=== PATIENT | male | born 1985 | race Caucasian/White ===

== ENCOUNTER 2023-04-02 21:03 | Emergency (ER) | payer BC, SELFPAY ==
[2023-04-02 21:05] VITALS: BP 133/88; PULSE 84; RESP 18; TEMP 36.4; O2SAT 98
[2023-04-02] MEDS: LIDOCAINE HCL 2% VISC SOLN 15 ML UDC PO (22:38)
[2023-04-02 22:52] VITALS: BP 125/74; PULSE 74; RESP 20; O2SAT 97
[2023-04-02 22:52] LABS: Basophils Absolute Auto 0.1 K/mm3 (0.0-0.1); Basophils Percent Auto 1.3 % (0.2-1.2); Eosinophils Absolute Auto 0.2 K/mm3 (0-0.3); Eosinophils Percent Auto 3.6 % (0-4.4); Hematocrit 39.7 % (42.0-52.0); Hemoglobin 13.9 g/dL (14.0-18.0); Immature Granulocyte Absolute 0.02 K/mm3 (0.00-0.031); Immature Granulocyte Percent A 0.3 % (0-0.5); Lymphocytes Absolute Auto 2.44 K/mm3 (0.9-3.2); Lymphocytes Percent Auto 40.4 % (18.3-44.2); Mean Corpuscular Hemoglobin 30.1 pg (26-34); Mean Corpuscular Volume 85.9 fl (80-100); Mean Platelet Volume 8.9 fl (7.4-10.4); Monocytes Absolute Auto 0.8 K/mm3 (0.1-0.6); Monocytes Percent Auto 13.9 % (2.6-8.5); Neutrophils Absolute Auto 2.4 K/mm3 (1.3-6.7); Neutrophils Percent Auto 40.5 % (45.5-73.1); Platelet Count Result 358 k/mm3 (150-375); Red Blood Count 4.62 M/mm3 (4.6-6.20); Red Cell Distribution Width 12.4 % (11.5-14.5)
[2023-04-02 23:05] LABS: Alanine Aminotransferase 23 U/L (6-50); Albumin Level 4.7 g/dL (3.5-5.1); Alkaline Phosphatase 68 U/L (38-126); Anion Gap 7 mmol/L (8-16); Aspartate Amino Transferase 32 U/L (17-59); Bilirubin,Total 0.4 mg/dL (0.2-1.3); Blood Urea Nitrogen 23 mg/dL (9-20); Calcium 9.4 mg/dL (8.4-10.2); Carbon Dioxide 27 mmol/L (22-30); Chloride 103 mmol/L (98-107); Estimated CRCL calculation 101 ml/min; Estimated Glomerular Filt Rate > 60; Glucose 114 mg/dL (65-110); Potassium 4.1 mmol/L (3.4-5.0); Sodium 137 mmol/L (137-145)
--- NOTE | 2023-04-02 23:36 | ED.GENADULT ---
HPI - General Adult General Chief complaint: GI Bleed Stated complaint: blood in stool, abd pain Time Seen by Provider: 04/02/23 21:44 History of Present Illness HPI narrative: Patient patient presents to the emergency department with concern for seeing blood in his stool. States that it is intermittent and very minimal. Denies history of hemorrhoids and denies having hemorrhoids currently. Patient denies generalized abdominal discomfort nausea vomiting or diarrhea. Denies history of constipation. He has a history of anxiety and is on multiple medications for it. Patient also states he has had this lower neck discomfort when he eats or drinks anything intermittent over the past couple weeks. Denies difficulty swallowing difficulty breathing. Overall patient is very pleasant and in no distress. He is concerned about his health Related Data Allergies Allergy/AdvReac Type Severity Reaction Status Date / Time Penicillins Allergy Unknown Other Verified 04/02/23 21:12 Review of Systems Review of Systems: Review of systems negative except what is documented in the HPI Exam Narrative: GENERAL: Well-appearing, well-nourished, and in no acute distress. HEAD: Normocephalic, atraumatic. EYES: PERRLA and EOMI. ENT: Nares clear, no rhinorrhea or epistaxis. Mucous membranes moist. NECK: Supple. CHEST: Clear to auscultation. No respiratory distress. HEART: Regular rate and rhythm. ABDOMEN: Soft, nontender, nondistended. EXTREMITIES: Normal range of motion. No edema. SKIN: Warm, dry, no rash. NEURO: No focal deficits. Alert and oriented x3. PSYCH: Normal mood and affect. Course Course Emergency Course: Differential diagnosis includes but not limited to gastritis, hemorrhoids, anxiety. Patient given viscous lidocaine and improved his throat sensation however patient stated that it is intermittent regardless Vital Signs Vital signs: Vital Signs Temperature 36.4 C L 04/02/23 21:05 Pulse Rate 84 04/02/23 21:05 Respiratory Rate 18 04/02/23 21:05 Blood Pressure 133/88 04/02/23 21:05 Pulse Oximetry 98 04/02/23 21:05 Oxygen Delivery Room Air 04/02/23 21:05 Temperature 36.4 C L 04/02/23 21:05 Pulse Rate 74 04/02/23 22:52 Respiratory Rate 20 04/02/23 22:52 Blood Pressure 125/74 04/02/23 22:52 Pulse Oximetry 97 04/02/23 22:52 Oxygen Delivery Room Air 04/02/23 21:05 Medical Decision Making MDM Narrative Medical decision making narrative: Labs including CBC and CMP ordered. Both grossly unremarkable. Hemoglobin 13.9. Mild hematochezia per patient at home. No active bleeding noted. Patient advised to follow-up with GI. We will also start him on Pepcid. Patient states he vapes and he was advised that it is dangerous for him and he should stop. He has no intention of decreasing in the future Vital Signs Vital Signs: Vital Signs Temperature 36.4 C L 04/02/23 21:05 Pulse Rate 84 04/02/23 21:05 Respiratory Rate 18 04/02/23 21:05 Blood Pressure 133/88 04/02/23 21:05 Pulse Oximetry 98 04/02/23 21:05 Oxygen Delivery Room Air 04/02/23 21:05 Temperature 36.4 C L 04/02/23 21:05 Pulse Rate 74 04/02/23 22:52 Respiratory Rate 20 04/02/23 22:52 Blood Pressure 125/74 04/02/23 22:52 Pulse Oximetry 97 04/02/23 22:52 Oxygen Delivery Room Air 04/02/23 21:05 Lab Data 04/02/23 22:39 04/02/23 22:39 Labs: Lab Results 04/02/23 Range/Units 22:39 WBC 6.0 (4.5-10.0) K/mm3 RBC 4.62 (4.6-6.20) M/mm3 Hgb 13.9 L (14.0-18.0) g/dL Hct 39.7 L (42.0-52.0) % MCV 85.9 (80-100) fl MCH 30.1 (26-34) pg MCHC 35.0 (32-36) g/dl RDW 12.4 (11.5-14.5) % Plt Count 358 (150-375) k/mm3 MPV 8.9 (7.4-10.4) fl Immature Gran % (Auto) 0.3 (0-0.5) % Neut % (Auto) 40.5 L (45.5-73.1) % Lymph % (Auto) 40.4 (18.3-44.2) % [place] % (Auto) 13.9 H (2.6-8.5) % Eos % (Auto) 3.6 (0-4.4) % Baso % (Au
== END 2023-04-02 23:49 | disposition home or self-care (01) ==
PROVIDERS: Emergency Provider Emergency Medicine
DX: K92.1 Melena (principal); R07.0 Pain in throat
CPT/HCPCS: 36415; 80053; 85025; 99283

== ENCOUNTER 2024-08-18 10:33 | Emergency (ER) | payer BC, SELFPAY ==
--- OUTSIDE RECORDS SUMMARY | 2024-08-18 10:35 | XMS_ITS | Referral Summary ---
Author Organization [facility] Address [address] [place] [address] Care Team Providers Care Residential Sales Name Role Phone Jean Goss MD Primary Care Provider [phone] Allergies Active Allergy Reactions Criticality Noted Date Comments Penicillin V Potassium Unknown 05/18/2019 Medications PARoxetine (PAXIL) 20 mg tablet 02/04/2022 Active mirtazapine (REMERON) 15 mg tablet Take 15 mg by mouth nightly 02/04/2022 Active QUEtiapine (SEROquel) 300 mg tabletIndicatio ns:Severe episode of recurrent major depressive disorder, without psychotic features (HCC) Take 1 tablet (300 mg total) by mouth nightly 30 tablet 03/09/2022 Active ALPRAZolam (XANAX) 1 mg tabletIndicatio ns:Generalized anxiety disorder with panic attacks Take 1 tablet (1 mg total) by mouth daily as needed for anxiety for up to 7 days 7 tablet 03/09/2022 Active Active Problems Problem Noted Date Diagnosed Date Positive urine drug screen 12/16/2023 Generalized anxiety disorder with panic attacks 01/19/2022 Assessment & Plan (03/09/2022 4:19 PM CDT): Likely exacerbated by Suboxon disontinuation. Recommend to follow up with Psych. Assessment & Plan (01/19/2022 8:41 AM CDT): Overall Condition Chronic Condition: Uncontrolled. Treatment: New Medication: Lexapro and Xanax as prescribedc. and Referral: clincal psychologist Follow up in 1 month Breast lump on right side at 9 o'clock position 07/28/2021 Assessment & Plan (07/28/2021 4:21 PM CENTRAL SUPPLY TECH): Overall Condition Chronic Condition: Uncontrolled and New Diagnosis. Treatment: Imaging: Diagnositic Mammogram Follow up in 1 month Ecchymosis 06/26/2021 Assessment & Plan (06/26/2021 1:28 AM CENTRAL SUPPLY TECH): Acute-encouraged to observe for the next 2-1/2 days, calling office with any concerns. Advised no treatment necessary at this time, however if purplish discoloration returns, come in for follow-up. Informed can also follow-up with Dr. Goss next week with any further concerns. Attention deficit hyperactiv ity disorder (ADHD), predominantly inattentive type 03/10/2021 Assessment & Plan (07/28/2021 4:21 PM CENTRAL SUPPLY TECH): Overall Condition Stable and Well-controlled. Treatment: Continue Present Management Follow up in 3 months Assessment & Plan (03/10/2021 1:17 PM CDT): Overall Condition Chronic Condition: Uncontrolled. Treatment: New Medication: Increase Adderall 20mg. Follow up in 3 months Erectile dysfunction 06/30/2020 Elevated blood pressure read ing without diagnosis of hypertension 06/12/2019 Assessment & Plan (06/12/2019 12:57 PM CENTRAL SUPPLY TECH): Overall Condition New Diagnosis and never been on medication. Treatment: New Medication: Consider Daily AM BP readings for next two weeks. Consider tobacco cessation. Consider to be started on medication. Follow up in 3 months Tobacco use disorder 06/12/2019 Assessment & Plan (05/14/2020 4:35 PM CDT): Tobacco Cessation counselling for more than 10minutes being provided. Assessment & Plan (06/12/2019 12:56 PM CENTRAL SUPPLY TECH): Tobacco Cessation counselling for more than 10minutes being provided. Lumbar pain 06/12/2019 Assessment & Plan (06/12/2019 1:14 PM CENTRAL SUPPLY TECH): Overall Condition: New Acute Problem Treatment: New Medication: Naproxen. Tramadol, Imaging: XRAY and Referral: PT Follow up PRN Severe episode of recurrent major depressive disorder, without psychotic features 08/09/2017 Assessment & Plan (03/09/2022 4:19 PM CDT): Overall Condition Chronic Condition: Uncontrolled. Treatment: Referral: Patient must see psychiatrist to be able to continue multiple psych medications. Follow up in 3 months Assessment & Plan (07/28/2021 4:22 PM CENTRAL SUPPLY TECH): Overall Condition Chronic Condition: Uncontrolled. Treatment: Referral: Patient must see psychiatrist to be able to continue multiple psych medications. Follow up in 3 months Assessment & Plan (12/04/2020 11:09 AM CDT): Overall Condition Stable and Well-controlled. Treatment: Continue Present Management Follow up in 3 months Assessment & Plan (06/12/2019 12:56 PM CENTRAL SUPPLY TECH): Overall Condition Stable and Well-controlled. Treatment: Continue Present Management Follow up in 6 months Social History Tobacco Use Types Packs/Day Years Used Date Smoking Tobacco: Every Day Alcohol Use Standard Drinks/Week Comments Never 0 (1 standard drink = 0.6 oz pur e alcohol) AUDIT-C Answer Date Recorded Frequency of Alcohol Consumption Never 06/12/2019 Average Number of Drinks Not on file 019 Frequency of Binge Drinking Not on file 05/25 PHQ-2 Answer Date Recorded PHQ-2 Total Score (If total score is 3 or more points, staff should administer the PHQ-9) 0 01/19/2022 Personal Safety Answer Date Recorded Have you ever been in or are you currently in a harmful physical or emotional relationship or is someone making you feel afraid or unsafe? Denies 12/16/2023 Sex and Gender Information Value Date Recorded Sex Assigned at Not on file Legal Sex Male 8:56 PM CENTRAL SUPPLY TECH Gender Identity Not on file Sexual Orientation Not on file Last Filed Vital Signs Vital Sign Reading Time Taken Comments Blood Pressure 119/68 12/16/2023 11:08 PM CDT Pulse 67 12/16/2023 11:08 PM CDT Temperature 36.9 ??C (98.4 ??F) 12/16/2023 4:24 PM CD T Respiratory Rate 18 12/16/2023 11:08 PM CDT Oxygen Saturation 97% 12/16/2023 11:08 PM CDT Inhaled Oxygen Concentration - - Weight 95.3 kg (210 lb) 12/16/2023 4:24 PM CDT Height 177.8 cm (5' 10 ) 12/16/2023 4:24 PM CDT Body Mass Index 30.13 12/16/2023 4:24 PM CDT Plan of Treatment Not on file Insurance [facility] [place] [facility] PLAN [facility] HMO Care Teams Residential Sales Relationship Specialty Start Date End Date Jean Goss MD PCP - General Family Medicine 06/11/19
--- OUTSIDE RECORDS SUMMARY | 2024-08-18 10:35 | XMS_ITS | Clinical Summary ---
Author Organization [facility] Address [address] [place] [address]. [place], [place] [id number] [place] [id number] Care Team Providers Care Manufacturing Engineer Name Role Phone Jean Goss MD Primary Care Provider [phone] Allergies Active Allergy Reactions Criticality Noted Date Comments Penicillins Other (see comment) 04/09/2022 paralysis Medications DULoxetine (CYMBALTA) 30 MG capsule Take 30 mg by mouth daily. 04/02/2022 Active QUEtiapine (SEROQUEL) 300 MG tablet Take 300 mg by mouth nightly at bedtime. at bedtime 04/02/2022 Active tiZANidine (ZANAFLEX) 4 MG tablet Take 1 tablet (4 mg total) by mouth every 6 (six) hours as needed. 12 tablet 04/09/2022 Active traMADol (ULTRAM) 50 MG tabletIndicatio ns:Acute Pain < 7 Day Supply Take 1 tablet (50 mg total) by mouth nightly as needed for Pain. Indications: Acute Pain < 7 Day Supply 7 tablet 04/09/2022 Active Family History Medical History Relation Comments Diabetes Father Diabetes Paternal Grandmother Relation Status Comments Father Paternal Grandmother Social History Tobacco Use Types Packs/Day Years Used Date Smoking Tobacco: Former Smokeless Tobacco: Never Alcohol Use Standard Drinks/Week Comments Never 0 (1 standard drink = 0.6 oz pur e alcohol) Sex and Gender Information Value Date Recorded Sex Assigned at Not on file Legal Sex Male 6:13 PM CDT Gender Identity Not on file Sexual Orientation Not on file Last Filed Vital Signs Vital Sign Reading Time Taken Comments Blood Pressure 170/100 04/09/2022 4:41 PM CDT Pulse 110 04/09/2022 4:41 PM CDT Temperature 37.1 ??C (98.7 ??F) 04/09/2022 4:41 PM CD T Respiratory Rate 18 04/09/2022 4:41 PM CDT Oxygen Saturation 98% 04/09/2022 4:41 PM CDT Inhaled Oxygen Concentration - - Weight 86.2 kg (190 lb) 04/09/2022 4:41 PM CDT Height 177.8 cm (5' 10 ) 04/09/2022 4:41 PM CDT Body Mass Index 27.26 04/09/2022 4:41 PM CDT Plan of Treatment Health Maintenance Due Date Last Done Comments Annual Physical 1990 Hepatitis C 2005 DTaP, Tdap and Td Vaccines ( 1 - Tdap) 2006 Hepatitis B Vaccines (1 of 3 - 19+ 3-dose series) 2006 COVID-19 Vaccine (2023-2 5 season) 2024 12/10/2020, 11/12/2020 Influenza Adult (#1) 2024 HPV Vaccines Aged Out No longer eligi ble based on patient's age to complete this topic Meningococcal B Vaccine Aged Out No l onger eligible based on patient's age to complete this topic Meningococcal Vaccine Aged Out No margaret luis eligible based on patient's age to complete this topic Pneumococcal Vaccine: Pediatrics (0 to 5 Years) and At-Risk Patients (6 to 64 Years) Aged Out No longer eligible b ased on patient's age to complete this topic RSV Immunizations Under 20 Months Aged Out No longer eligible b ased on patient's age to complete this topic Insurance [facility] Care Teams Manufacturing Engineer Relationship Specialty Start Date End Date Jean Goss MD PCP - General FAMILY PRACTICE 04/09/22
--- OUTSIDE RECORDS SUMMARY | 2024-08-18 10:35 | XMS_ITS ---
Author Organization [facility] Address [address] [place] [address] Care Team Providers Care Hack Saw Operator Name Role Phone Mathieu Little Primary Care Provider Trish Ayers Unavailable [phone] Allergies Allergen (clinical drug ingredient) Drug/Non Drug Allergy documented on EMR Reaction Allergy Type Onset Date Status Penicillin G Benzathine Unknown Drug Allergy Active REASON FOR VISIT 1 month f/u Medications Medication SIG (Take, Route, Frequency, Duration) Notes Start Date End Date Status Buprenorphine HCl-Naloxone HCl 8-2 MG 1 film under the tongue and allow to dissolve Sublingual three times a day for 15 days 08/03/2024 Active buPROPion HCl ER (XL) 300 MG 1 tablet in the morning Orally Once a day for 30 days Active Docusate Sodium 100 MG 1 capsule as need ed Orally Once a day for 30 days 04/30/2024 Active Albuterol Sulfate HFA 108 (90 Base) MCG/ACT INHALE 1 PUFF BY MOUTH EVERY 4 HOURS NEEDED FOR WHEEZING for 33 Not-Taking Propranolol HCl ER 60 MG 1 capsule Orall y twice per day for 30 days Active QUEtiapine Fumarate 400 MG TAKE 1 TABLET BY MOUTH EVERY DAY AT BEDTIME FOR 30 DAYS for 30 days Active Fluticasone Propionate 50 MCG/ACT 1-2 sprays in each nostril Nasally once daily for 30 days 07/23/2024 Active QUEtiapine Fumarate 200 MG 1 tablet Oral ly twice a day for 30 days Active Zolpidem Tartrate 10 MG 1 tablet at bedt valentín as needed Orally Once a day for 30 days 08/01/2024 Active Pantoprazole Sodium 20 MG 1 tablet 1/2 t o 1 hour before morning meal Orally Once a day for 30 days Active Cetirizine HCl 10 MG 1 tablet as needed Orally Once a day for 30 days 07/23/2024 Active Social History Sex Assigned At : Social History Observation Description Sex Assigned At Male Encounters Encounter Location Date Provider Diagnosis [address] [place] [address] 08/01/2024 Trihs Ayers MDD (major depressiv e disorder) F32.9 ; Generalized anxiety disorder F41.1 and Sleep disturbance, unspecified G47.9 Assessments Encounter Date Diagnosis (ICD Code) Assessment Notes Treatment Notes Treatment Clinical Notes Section Notes 08/01/2024 MDD (major depressive disorder) (ICD-10 - F32.9) 08/01/2024 Generalized anxiety disorder (ICD-10 - F41.1) 08/01/2024 Sleep disturbance, unspecified (ICD-10 - G47.9) Has tried Seroquel, trazodone. Hx of doing well with Ambien, tried 6.25 mg CR with minimal response, changing to 10mg IR. Discussed not taking at same time as Suboxone. Discussed resp depression. Discussed r/b/se and controlled susbtance. Recent UDS with MAR reviewed, no conserns at this time. PDMP checked without concerns. 08/01/2024 Other Reasons, potential benefits, potential risks, interactions and side effects of all medications were discussed. The Patient/Guardian asked appropriate questions, appeared to understand the answers, and decided to accept the treatment and continue being followed. Alternatives and expected course without treatment were reviewed. The Patient/Guardian is aware of the need to contact the office or return for an earlier appointment if any problems or concerns arise. May also contact the 24-hour crisis hotline ([facility]), refer to the closest emergency room or call 911 if new symptoms arise of existing symptoms worsen. The Patient/Guardian is aware that this would apply to symptoms like: suicidal ideation, homicidal ideation, high risk behaviors, manic symptoms, psychotic symptoms, physical symptoms, or any other symptoms that may be dangerous to self or others. Greater than 50% of time spent on coordination and counseling where psychopharmacology as well as psychotherapeutic interventions were discussed along with review of treatments in the past. Education provided concerning need for adequate hydration. Patient/Guardian verbalized understanding of education, treatment plan and follow up. This session was completed telephonically with client/parental/guard graham consent: Unable to determine movement status, assess appearance, affect, AIMS, or vital signs. Plan Of Treatment Medication Medication Name Sig Start Date Stop Date Notes buPROPion HCl ER (XL) 300 MG 1 tablet in the morning Orally Once a day for 30 days Zolpidem Tartrate ER 6.25 MG 1 tablet at bedtime as needed Orally Once a day for 30 days Propranolol HCl ER 60 MG 1 capsule Orall y twice per day for 30 days QUEtiapine Fumarate 400 MG TAKE 1 TABLET BY MOUTH EVERY DAY AT BEDTIME FOR 30 DAYS for 30 days QUEtiapine Fumarate 200 MG 1 tablet Oral ly twice a day for 30 days Zolpidem Tartrate 10 MG 1 tablet at bedt valentín as needed Orally Once a day for 30 days 08/01/2024 Treatment Notes Assessment Notes Sleep disturbance, unspecified Has tried Seroquel, trazodone. Hx of doing well with Ambien, tried 6.25 mg CR with minimal response, changing to 10mg IR. Discussed not taking at same time as Suboxone. Discussed resp depression. Discussed r/b/se and controlled susbtance. Recent UDS with MAR reviewed, no conserns at this time. PDMP checked without concerns. Other Reasons, potential benefits, potential risks, interactions and side effects of all medications were discussed. The Patient/Guardian asked appropriate questions, appeared to understand the answers, and decided to accept the treatment and continue being followed. Alternatives and expected course without treatment were reviewed. The Patient/Guardian is aware of the need to contact the office or return for an earlier appointment if any problems or concerns arise. May also contact the 24-hour crisis hotline ([facility]), refer to the closest emergency room or call 911 if new symptoms arise of existing symptoms worsen. The Patient/Guardian is aware that this would apply to symptoms like: suicidal ideation, homicidal ideation, high risk behaviors, manic symptoms, psychotic symptoms, physical symptoms, or any other symptoms that may be dangerous to self or others. Greater than 50% of time spent on coordination and counseling where psychopharmacology as well as psychotherapeutic interventions were discussed along with review of treatments in the past. Education provided concerning need for adequate hydration. Patient/Guardian verbalized understanding of education, treatment plan and follow up. This session was completed telephonically with client/parental/guardian consent: Unable to determine movement status, assess appearance, affect, AIMS, or vital signs. Next Appt Details Follow Up: 4 Weeks, Reason: Psych F/U, may be telehealth Progress Notes * Héctor MERAZwDOB:[birth year] (38 yo M)Acc No.[id number]:08/01/2024 Patient:?Ab MERAZ Provider:?Trish Ayers, MSN, SCREW DRIVER OPERATOR, EAP SPECIALIST- C :1985???Age:38 Y???Sex:Male Siddhartha e:08/01/2024 Address:[address] [place], [place] [id number] Pcp:Mathieu Little Subjective: * Chief Complaints: * ???1 month f/u * HPI: ???Depression Screening:?PHQ-9?Little interest or pleasure in doing things?Several days,?Feeling down, depressed, or hopeless?Several days,?Trouble falling or staying asleep, or sleeping too much?More than half the days,?Feeling tired or having little energy?More than half the days,?Poor appetite or overeating?Several days,?Feeling bad about yourself or that you are a failure, or have let yourself or your family down?Not at all,?Trouble concentrating on things, such as reading the newspaper or watching television?Several days,?Moving or speaking so slowly that other people could have noticed; or the opposite, being so fidgety or restless that you have been moving around a lot more than usual?Not at all,?Thoughts that you would be better off or of hurting yourself in some way?Not at all,?Total Score?8,?Interpretation?Mild Depression.?Screening:?Zavala Suicide Severity Rating Scale (LF)?Do you want to initiate with?Screener form,?1. Wish to be : Have you wished you were or wished you could go to sleep and not wake up??No,?2. Suicidal Thoughts: Have you actually had any thoughts of killing yourself??No,?6. Suicide Behaviour: Have you ever done anything,started to do anything, or prepared to end your life??No,?Interpretation:?Low Risk.?CSSRS Interpretation and Follow Up Plan:?CSSRS Interpretation and Follow Up Plan?CSSRS Screen documented using SF?Yes,?Risk Disposition from SF?Low - No Follow Up Plan Required,?Follow Up Plan?No Follow Up Plan required at this time..?Summary:? How ct. doing today? Client is a 38 yo M on the phone today reporting things have been going well overall besides not sleeping great.? States taking medications well. Denies SE.? States Ambien CR helps minimal, trouble with falling and staying asleep.? Depression: 11/01 Anxiety: 11/01? Anger/irritability: Denies? Social: Talks with family, working?? Sleep: A little better but not a huge improvement by any means. ? Appetite: Fair, mainly eat when I get home from work. Eats 1-2 times per day. States he does well with drinking water.? Work: Going well? Drugs/ETOH: Denies? Hallucinations/paranoia: Denies? Denies SI/HI.? Denies medical changes/concerns at this time. * ROS:?Psych ROS:?Constitutional?Denies.?Eyes?Denies.?Ears/Nose/Mouth/Throat?Denies.?Respirat ory?Denies.?Allergic /Immunologic?Denies.?Cardiovascular?Denies.?GI?Reports,?ulcer.?Musculoskeletal?D enies. Neuro l ogical?Denies.?Integumentary?Denies.?Endocrine?Denies.?Hematological/Lymphatic?D enies.?Psychiatric: Denies SI/HI/AVH. * Medical History:? * Surgical History:? * Hospitalization/Major Diagno stic Procedure:?[facility] 20[facility]Multiple psychiatric holds bleeding ulcer, Fall, broken ankle 11/2023 * Family History:?Father: dece ased.?Mother: alive.?1 brother(s) , 1 sister(s) - healthy. .? Diabetes Brother . 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 * Medications:?TakingPantopraz ole Sodium 20 MG Tablet Delayed Release 1 tablet 1/2 to 1 hour before morning meal Orally Once a day Cetirizine HCl 10 MG Tablet 1 tablet as needed Orally Once a day Fluticasone Propionate 50 MCG/ACT Suspension 1-2 sprays in each nostril Nasally once daily Propranolol HCl ER 60 MG Capsule Extended Release 24 Hour 1 capsule Orally twice per day QUEtiapine Fumarate 400 MG Tablet TAKE 1 TABLET BY MOUTH EVERY DAY AT BEDTIME FOR 30 DAYS QUEtiapine Fumarate 200 MG Tablet 1 tablet Orally twice a day buPROPion HCl ER (XL) 300 MG Tablet Extended Release 24 Hour 1 tablet in the morning Orally Once a day Zolpidem Tartrate ER 6.25 MG Tablet Extended Release 1 tablet at bedtime as needed Orally Once a day Docusate Sodium 100 MG Capsule 1 capsule as needed Orally Once a day Buprenorphine HCl-Naloxone HCl 8-2 MG Film 1 film under the tongue and allow to dissolve Sublingual three times a day Taking Pantoprazole Sodium 20 MG Tablet Delayed Release 1 tablet 1/2 to 1 hour before morning meal Orally Once a day Taking Cetirizine HCl 10 MG Tablet 1 tablet as needed Orally Once a day Taking Fluticasone Propionate 50 MCG/ACT Suspension 1-2 sprays in each nostril Nasally once daily Taking Propranolol HCl ER 60 MG Capsule Extended Release 24 Hour 1 capsule Orally twice per day Taking QUEtiapine Fumarate 400 MG Tablet TAKE 1 TABLET BY MOUTH EVERY DAY AT BEDTIME FOR 30 DAYS Taking QUEtiapine Fumarate 200 MG Tablet 1 tablet Orally twice a day Taking buPROPion HCl ER (XL) 300 MG Tablet Extended Release 24 Hour 1 tablet in the morning Orally Once a day Taking Zolpidem Tartrate ER 6.25 MG Tablet Extended Release 1 tablet at bedtime as needed Orally Once a day Taking Docusate Sodium 100 MG Capsule 1 capsule as needed Orally Once a day Taking Buprenorphine HCl-Naloxone HCl 8-2 MG Film 1 film under the tongue and allow to dissolve Sublingual three times a day Not-TakingAlbuterol Sulfate HFA 108 (90 Base) MCG/ACT Aerosol Solution INHALE 1 PUFF BY MOUTH EVERY 4 HOURS NEEDED FOR WHEEZING Not-Taking Albuterol Sulfate HFA 108 (90 Base) MCG/ACT Aerosol Solution INHALE 1 PUFF BY MOUTH EVERY 4 HOURS NEEDED FOR WHEEZING * Allergies:?Penicillin G Olvin athineno[Allergies Verified] Objective: * Vitals:? * Examination: ???Mental Status Exam: ?SENSORIUM AND COGNITION? Alert, Oriented to Person, Oriented to Place, Oriented to Time, Oriented to Situation.?ATTENTION AND CONCENTRATION? No deficits.?ATTITUDE AND BEHAVIOR? Cooperative, Receptive.?MEMORY? Immediate, Recent, Remote.?MOOD?Euthymic.?SPEECH QUANTITY? Appropriate.?SPEECH QUALITY? Appropriate volume.?THOUGHT PROCESS? Coherent and goal directed.?THOUGHT CONTENT? Appropriate - WNL.?SUICIDAL IDEATION? Denies suicidal ideation.?HOMICIDAL IDEATION? Denies homicidal ideation.?HALLUCINATIONS? Denies hallucinations.?INSIGHT?Fair.?JUDGMENT?Fair.?FUND OF KNOWLEDGE?Good.?ABILITY TO PARTICIPATE IN TREATMENT?Moderate.?WILLINGNESS TO PARTICIPATE IN TREATMENT?Moderate.?Exam limited due to telephone encounter. Assessment: * Assessment: 1.?MDD (major depressive dis order) - F32.9 (Primary)???2.?Generalized anxiety disorder - F41.1???3.?Sleep disturbance, unspecified - G47.9??? Plan: * Treatment: 2.?Generalized anxiety disor faustino? Continue Propranolol HCl ER Capsule Extended Release 24 Hour, 60 MG, 1 capsule, Orally, twice per day, 30 days, 60, Refills 0.?? 3.?Sleep disturbance, unspec ified? Stop Zolpidem Tartrate ER Tablet Extended Release, 6.25 MG, 1 tablet at bedtime as needed, Orally, Once a day, 30 days, 30 Tablet;?Start Zolpidem Tartrate Tablet, 10 MG, 1 tablet at bedtime as needed, Orally, Once a day, 30 days, 30 Tablet, Refills 0.?? Notes: Has tried Seroquel, trazodone. Hx of doing well with Ambien, tried 6.25 mg CR with minimal response, changing to 10mg IR. Discussed not taking at same time as Suboxone. Discussed resp depression. Discussed r/b/se and controlled susbtance. Recent UDS with MAR reviewed, no conserns at this time. PDMP checked without concerns. ?? 4.?Others? Notes: Reasons, potential benefits, potential risks, interactions and side effects of all medications were discussed. The Patient/Guardian asked appropriate questions, appeared to understand the answers, and decided to accept the treatment and continue being followed. Alternatives and expected course without treatment were reviewed. The Patient/Guardian is aware of the need to contact the office or return for an earlier appointment if any problems or concerns arise. May also contact the 24-hour crisis hotline ([facility]), refer to the closest emergency room or call 911 if new symptoms arise of existing symptoms worsen. The Patient/Guardian is aware that this would apply to symptoms like: suicidal ideation, homicidal ideation, high risk behaviors, manic symptoms, psychotic symptoms, physical symptoms, or any other symptoms that may be dangerous to self or others. Greater than 50% of time spent on coordination and counseling where psychopharmacology as well as psychotherapeutic interventions were discussed along with review of treatments in the past. Education provided concerning need for adequate hydration. Patient/Guardian verbalized understanding of education, treatment plan and follow up. This session was completed telephonically with client/parental/guardian consent: Unable to determine movement status, assess appearance, affect, AIMS, or vital signs.?? * Procedure Codes:? * Follow Up:?4 Weeks (Reason: Psych F/U, may be telehealth) * * ER COMPOUNDER Sign off status: Completed true * Provider:?Trish Ayers, MSN, SCREW DRIVER OPERATOR, EAP SPECIALIST- C Date:?08/01/2024 Generated for Mack tyson/Johnathan/eTransmitting on:?08/18/2024 10:35 AM RUBBER COMPOUNDER History and Physical Notes * HPI (History of Present Illness) Category Sub-Category Detail Notes Category Not es Depression Screening PHQ-9 Little inte rest or pleasure in doing things: Several days Feeling down, depressed, or hopeless: Se veral days Trouble falling or staying a sleep, or sleeping too much: More than half the days Feeling tired or having little energy: M ore than half the days Poor appetite or overeating: Several day s Feeling bad about yourself o r that you are a failure, or have let yourself or your family down: Not at all Trouble concentrating on thi ngs, such as reading the newspaper or watching television: Several days Moving or speaking so slowly that other people could have noticed; or the opposite, being so fidgety or restless that you have been moving around a lot more than usual: Not at all Thoughts that you would be b max off or of hurting yourself in some way: Not at all Total Score: 8 Interpretation: Mild Depression Summary How ct. doing today? Client is a 38 yo M on the phone today reporting things have been going well overall besides not sleeping great. States taking medications well. Denies SE. States Ambien CR helps minimal, trouble with falling and staying asleep. Depression: 11/01 Anxiety: 11/01 Anger/irritability: Denies Social: Talks with family, working Sleep: A little better but not a huge improvement by any means. Appetite: Fair, mainly eat when I get home from work. Eats 1-2 times per day. States he does well with drinking water. Work: Going well Drugs/ETOH: Denies Hallucinations/paranoia: Denies Denies SI/HI. Denies medical changes/concerns at this time. Screening Zavala Suicide Severity Rating Scale (LF) Do you want to initiate with: Screener form ?1. Wish to be : Have yo u wished you were or wished you could go to sleep and not wake up?: No ?2. Suicidal Thoughts: Have you actually had any thoughts of killing yourself?: No ?6. Suicide Behaviour: Have you ever done anything,started to do anything, or prepared to end your life?: No ?Interpretation:: Low Risk CSSRS Interpretation and Follow Up Plan CSSRS Interpretation and Follow Up Plan CSSRS Screen documented using SF: Yes Risk Disposition from SF: Low - No Follo w Up Plan Required Follow Up Plan: No Follow Up Plan requir ed at this time. Examination Category Sub-Category Detail Notes Category Not es Mental Status Exam SENSORIUM AND COGNITION Alert, Oriented to Person, Oriented to Place, Oriented to Time, Oriented to Situation Exam limited due to telephone encounter ATTENTION AND CONCENTRATION No deficits ATTITUDE AND BEHAVIOR Cooperative, Anatomy Teacher tive MEMORY Immediate, Recent, R emote MOOD Euthymic SPEECH QUANTITY Appropriate SPEECH QUALITY Appropriate volume THOUGHT PROCESS Coherent and goal di rected THOUGHT CONTENT Appropriate - WNL SUICIDAL IDEATION Denies suicidal idea tion HOMICIDAL IDEATION Denies homicidal aline ation HALLUCINATIONS Denies hallucination s INSIGHT Fair JUDGMENT Fair FUND OF KNOWLEDGE Good ABILITY TO PARTICIPATE IN TREATMENT Mode rate WILLINGNESS TO PARTICIPATE IN TREATMENT Moderate
--- OUTSIDE RECORDS SUMMARY | 2024-08-18 10:35 | XMS_ITS | Clinical Summary ---
Author Organization [facility] Address [address] [place] [address] Care Team Providers Care Ragman Name Role Phone Jean Goss MD Primary Care Provider [phone] Allergies Active Allergy Reactions Criticality Noted Date [...] 07/28/2021 Assessment & Plan (07/28/2021 4:21 PM ELECTRICAL PROJECT ENGINEER): Overall Condition Chronic Condition: Uncontrolled and New Diagnosis. Treatment: Imaging: Diagnositic Mammogram Follow up in 1 month Ecchymosis 06/26/2021 Assessment & Plan (06/26/2021 1:28 AM ELECTRICAL PROJECT ENGINEER): Acute-encouraged to observe for the next 2-1/2 days, calling office with any concerns. Advised no treatment necessary at this time, however if purplish discoloration returns, come in for follow-up. Informed can also follow-up with Dr. Goss next week with any further concerns. Attention deficit hyperactiv ity disorder (ADHD), predominantly inattentive type 03/10/2021 Assessment & Plan (07/28/2021 4:21 PM ELECTRICAL PROJECT ENGINEER): Overall Condition Stable and Well-controlled. Treatment: Continue Present Management Follow up in 3 months Assessment & Plan (03/10/2021 1:17 PM CDT): Overall Condition Chronic Condition: Uncontrolled. Treatment: New Medication: Increase Adderall 20mg. Follow up in 3 months Erectile dysfunction 06/30/2020 Elevated blood pressure read ing without diagnosis of hypertension 06/12/2019 Assessment & Plan (06/12/2019 12:57 PM ELECTRICAL PROJECT ENGINEER): Overall Condition New Diagnosis and never been on medication. Treatment: New Medication: Consider Daily AM BP readings for next two weeks. Consider tobacco cessation. Consider to be started on medication. Follow up in 3 months Tobacco use disorder 06/12/2019 Assessment & Plan (05/14/2020 4:35 PM CDT): Tobacco Cessation counselling for more than 10minutes being provided. Assessment & Plan (06/12/2019 12:56 PM ELECTRICAL PROJECT ENGINEER): Tobacco Cessation counselling for more than 10minutes being provided. Lumbar pain 06/12/2019 Assessment & Plan (06/12/2019 1:14 PM ELECTRICAL PROJECT ENGINEER): Overall Condition: New Acute Problem Treatment: New [...] months Assessment & Plan (07/28/2021 4:22 PM ELECTRICAL PROJECT ENGINEER): Overall Condition Chronic Condition: Uncontrolled. Treatment: Referral: Patient must see psychiatrist to be able to continue multiple psych medications. Follow up in 3 months Assessment & Plan (12/04/2020 11:09 AM CDT): Overall Condition Stable and Well-controlled. Treatment: Continue Present Management Follow up in 3 months Assessment & Plan (06/12/2019 12:56 PM ELECTRICAL PROJECT ENGINEER): Overall Condition Stable and Well-controlled. Treatment: Continue Present Management Follow up in 6 months Medical History Medical History Date Comments Depression ADHD (attention deficit hyperactivity disorder) Family History Medical History Relation Name Comments Diabetes Father No Known Problems Mother Relation Name Status Comments Father Mother Alive Social History Tobacco Use Types Packs/Day Years [...] on file Legal Sex Male 8:56 PM ELECTRICAL PROJECT ENGINEER Gender Identity Not on file Sexual Orientation Not on file Obstetrics History Last Filed Vital Signs Vital Sign Reading [...] 12/16/2023 4:24 PM CDT Plan of Treatment Health Maintenance Due Date Last Done Comments Hepatitis C Screening 1987 Pneumococcal vaccine <65 (1 of 2 - PCV) 1993 DTaP/Tdap/Td Vaccine (1 - Tdap) 1998 Hepatitis B Screening 2005 Regular Well Visit/Exam 18-64 06/10/2022 06/10/2021, 05/14/2020 Depression Screening 01/19/2023 01/19/2022, 01/19/2022, 03/10/2021, Additional history exists Influenza Vaccine (#1) 2024 HPV Vaccines Aged Out No longer eligi ble based on patient's age to complete this topic Varicella Vaccines Discontinued Insurance [employer] [place]PO [place] [facility] PLAN [facility] HMO Care Teams Ragman Relationship Specialty Start Date End Date Jean Goss MD PCP - General Family Medicine 06/11/19
--- OUTSIDE RECORDS SUMMARY | 2024-08-18 10:35 | XMS_ITS ---
Author Organization [facility] Address [address] [place] [address] Care Team Providers Care Bad Cloth Checker Name Role Phone Mathieu Little Primary Care Provider [phone] Trish Ayers Unavailable [phone] Antonia Miner Unavailable [phone] REASON FOR VISIT Suboxone Medications Medication SIG (Take, Route, Frequency, Duration) Notes Start Date End Date Status Buprenorphine HCl-Naloxone HCl 8-2 MG 1 film under the tongue and allow to dissolve Sublingual three times a day for 15 days 08/03/2024 Active Social History Sex Assigned At : Social History Observation Description Sex Assigned At Male Encounters Encounter Location Date Provider Diagnosis [address] [place] [address] 07/26/2024 Antonia Miner Opioid use disorder F11.99 Assessments Encounter Date Diagnosis (ICD Code) Assessment Notes Treatment Notes Treatment Clinical Notes Section Notes 07/26/2024 Opioid use disorder (ICD-10 - F11.99) Plan Of Treatment Medication Medication Name Sig Start Date Stop Date Notes Buprenorphine HCl-Naloxone H Cl 8-2 MG 1 film under the tongue and allow to dissolve Sublingual three times a day for 15 days 08/03/2024 Progress Notes * ELLIENICOLÁSHéctor QURESHIMikeOB:[birth year] (38 yo M)Acc No.[id number]:07/26/2024 Patient:?Ab MERAZ :1985???Age:38 Y???Sex:Male Address:[address] [place] [address], [place], [address] * Refills? Refill Buprenorphine HCl-Naloxone HCl Film, 8-2 MG, Sublingual, 45, 1 film under the tongue and allow to dissolve, three times a day, 15 days, Refills=0 * true * Date:? Generated for Mack tyson/Johnathan/Marksmitting on:?08/18/2024 10:35 AM CHANGE MANAGEMENT
--- OUTSIDE RECORDS SUMMARY | 2024-08-18 10:36 | XMS_ITS ---
Author Organization [facility] Address [address] [place] [address] Care Team Providers Care Advice Line Rn Name Role Phone Mathieu Little Primary Care Provider [phone] Trish Ayers Unavailable [phone] Antonia Miner Unavailable [phone] REASON FOR VISIT appointment? Social History Sex Assigned At : Social History Observation Description Sex Assigned At Male Encounters Encounter Location Date Provider Diagnosis [address] [address] 08/06/2024 Antonia Miner Plan Of Treatment No Information Progress Notes * Héctor MERAZMikeOB:[birth year] (38 yo M)Acc No.[id number]:08/06/2024 Patient:?Ab MERAZ :1985???Age:38 Y???Sex:Male Address:[address] [place] [address], [address] * true * Date:? Generated for Printi ng/Fafranciscag/eTransmitting on:?08/18/2024 10:35 AM INVESTMENT CONSULTANT
--- OUTSIDE RECORDS SUMMARY | 2024-08-18 10:39 | XMS_ITS | Patient Health Record ---
Author Organization [facility] Address [address] [place] [address] Care Team Providers Care Harness Cutter Name Role Phone Mathieu Little Primary Care Provider [phone] Trish Ayers Unavailable [phone] Ingris Potts Unavailable [phone] Keven Dennis Unavailable [phone] Mercedez Weiss Unavailable [phone] Ruperto Weston Unavailable [phone] Yaima Joel Unavailable [phone] Alejandra Espinoza Unavailable [phone] Antonia Miner Unavailable [phone] Allergies Allergen (clinical drug ingredient) Drug/Non Drug Allergy documented on EMR Reaction Allergy Type Onset Date Status Penicillin G Benzathine Unknown Drug Allergy Active Results Component Value Reference Range Notes NALOXONE,UR,MS CONFIRM Reviewed date:06/28/2024 08:40:26 PM Interpretation: Positive Performing Lab:[facility], [address], [place], Phone - [phone], Director - PhDAbudu Notes/Report: Clinical Information:[id number] LM RESULT Positive NALOXONE 853 TESTING FOR NALOXONE IS PERFORMED BY CHROMATOGRAPHY WITH MASS SPECTROMETRY. REPORTING LIMIT IS 25 NG/ML. Buprenorphine and Metabolite (Urine test) Reviewed date:06/28/2024 08:40:26 PM Interpretation: Positive Performing Lab:[facility], [address], [place], Phone - [phone], Director - PhDAbudu Notes/Report: Clinical Information:[id number] Buprenorphine Comment: Confirmation p erformed by Mass Spectrometry Buprenorphine Positive Buprenorphine Conf, MS, UR 325 Cutoff=10 ng/m L Norbuprenorphine Comment: Invalid Res ult: LC/MS/MS Interference 12 Panel Urine Drug Screen Reviewed date:04/10/2024 01:18:33 PM Interpretation: Performing Lab: Notes/Report: THC neg RAMÍREZ neg MOP (OPI) neg AMP neg MET neg BAR neg BZO POS MDMA neg MTD neg OXY neg PCP neg BUP NEG Medication Assisted Treatmen t (MAT) Buprenorphine, Norbuprenorphine, and Naloxone MS Confirmation, Urine Reviewed date:07/26/2024 01:01:46 PM Interpretation: Performing Lab:[facility], [address] [place] [address], Phone - [phone], Director - Darío Notes/Report: Creatinine 306 REFERENCE RANGE : Ref Range>=20 BUPRENORPHINE ++POSITIVE++ Buprenorphine >327 Norbuprenorphine 231 N/B Ratio <0.71 >=0.3 OPIATE ANTAGONIST ++POSITIVE++ Naloxone >327 Testing Threshold: buprenorphine, 1.0 ng/mL norbuprenorphine, 5.0 ng/mL naloxone, 10 ng/mL This test was developed and its performance characteristics determined by [facility]. It has not been cleared or approved by the Food and Drug Administration. Comprehensive Drug Analysis, Urine Reviewed date:05/14/2024 09:19:55 AM Interpretation: Performing Lab:[facility], [address] [place] [address], Phone - [phone], Director - Darío Notes/Report: [facility], [facility] FLEX or MAT drug testing: -Technical component - Data analysis performed at [address] [place] [address]. Summary Report (Summary) FINAL COMPREHENSIVE DRUG ANALYSIS,UR Test Result Flag Units Drug Present Oxazepam 194 ng/mg creat Temazepam 45 ng/mg creat Oxazepam and temazepam are expected metabolites of diazepam. Oxazepam is also an expected metabolite of other benzodiazepine drugs, including chlordiazepoxide, prazepam, clorazepate, halazepam, and temazepam. Oxazepam and temazepam are available as scheduled prescription medications. Buprenorphine 135 ng/mg creat Norbuprenorphine 31 ng/mg creat Source of buprenorphine is a scheduled prescription medication. Norbuprenorphine is an expected metabolite of buprenorphine. A moderate to large amount of buprenorphine is present; norbuprenorphine is present at a very low concentration. This is an atypical result. Although patients with unusual metabolic profiles exist, they are rare. Review of previous drug screen results or collection of a urine sample several hours after a WITNESSED dose of the drug may help to clarify the subject's ability to produce metabolite. Bupropion PRESENT Hydroxybupropion PRESENT Hydroxybupropion is an expected metabolite of bupropion. Trazodone PRESENT 1,3 chlorophenyl piperazine PRESENT 1,3-chlorophenyl piperazine is an expected metabolite of trazodone. Quetiapine PRESENT Propranolol PRESENT Test Result Flag Units Ref Range Creatinine 159 mg/dL >=20 For clinical consultation, please call . PDF . 12 Panel Urine Drug Screen Reviewed date:04/30/2024 01:07:08 PM Interpretation: Performing Lab: Notes/Report: THC neg RAMÍREZ neg MOP (OPI) neg AMP neg MET neg BAR neg BZO POS MDMA neg MTD neg OXY neg PCP neg BUP POS Testosterone, Serum Reviewed date:06/26/2024 12:02:55 PM Interpretation: Performing Lab:[facility], [address] [facility], Phone - [phone], Director - Jose Alfredo Notes/Report: Clinical Information:[id number] LM Testosterone 210 264-916 ng/dL Adult male reference interval is based on a population of healthy nonobese males (BMI <30) between 19 and 39 years old. navin Prince.al. JCEM 2017,102;2678-8599. PMID: [id number]. 12 Panel Urine Drug Screen Reviewed date:05/16/2024 01:07:32 PM Interpretation: Performing Lab: Notes/Report: THC neg RAMÍREZ neg MOP (OPI) neg AMP neg MET neg BAR neg BZO POS MDMA neg MTD neg OXY neg PCP neg BUP POS 12 Panel Urine Drug Screen Reviewed date:08/18/2023 01:37:17 PM Interpretation: Performing Lab: Notes/Report: THC neg RAMÍREZ neg MOP (OPI) neg AMP neg MET neg BAR neg BZO neg MDMA neg MTD neg OXY neg PCP neg BUP POS 12 Panel Urine Drug Screen Reviewed date:05/22/2024 03:00:15 PM Interpretation: Performing Lab: Notes/Report: THC neg RAMÍREZ neg MOP (OPI) neg AMP neg MET neg BAR neg BZO neg MDMA neg MTD neg OXY neg PCP neg BUP POS PDF Report Reviewed date:05/22/2024 10:05:00 AM Interpretation: Performing Lab:[email or web address], [address] [facility], Phone - [phone], Director - Darío Notes/Report: [facility], [facility] FLEX or MAT drug testing: -Technical component - Data analysis performed at [address] [place] [address]. PDF Report1 [facility] 12 Panel Urine Drug Screen Reviewed date:07/17/2024 02:54:52 PM Interpretation: Performing Lab: Notes/Report: THC neg RAMÍREZ neg MOP (OPI) neg AMP neg MET neg BAR neg BZO neg MDMA neg MTD neg OXY neg PCP neg BUP POS Buprenorphine and Metabolite (Urine test) Reviewed date:06/26/2024 12:02:55 PM Interpretation: Performing Lab:[facility] [address], Phone - [phone], Director - [facility] Notes/Report: Clinical Information:[id number] Buprenorphine Comment: Confirmation p erformed by Mass Spectrometry Buprenorphine Positive Buprenorphine Conf, MS, UR 2625 Cutoff=10 ng/m L Norbuprenorphine Comment: Invalid Res ult: LC/MS/MS Interference HIV Screen *HIV 1, 2 Ab, p24 Ag Reviewed date:06/26/2024 12:02:55 PM Interpretation: Performing Lab:[facility] [address] [place] [address], Phone - [phone], Director - [facility] Notes/Report: Clinical Information:[id number] HIV Ab/p24 Ag Screen Non Reactive Non Reactive HIV-1/HIV-2 antibodies and HIV-1 p24 antigen were NOT detected. There is no laboratory evidence of HIV infection. HIV Negative CBC With Differential/Platel et* Reviewed date:06/26/2024 12:02:55 PM Interpretation: Performing Lab:[facility] [address], Phone - [phone], Director - [facility] Notes/Report: Clinical Information:[id number] WBC 5.3 3.4-10.8 x10E3/uL Effective June 25, 2024 profile [id number] WBC will be made non-orderable as a stand-alone order code. RBC 5.14 4.14-5.80 x10E6/uL Hemoglobin 14.0 13.0-17.7 g/dL Hematocrit 44.1 37.5-51.0 % MCV 86 79-97 fL MCH 27.2 26.6-33.0 pg MCHC 31.7 31.5-35.7 g/dL RDW 14.9 11.6-15.4 % Platelets 306 150-450 x10E3/uL Neutrophils 53 Not Estab. % Lymphs 34 Not Estab. % Monocytes 9 Not Estab. % Eos 3 Not Estab. % Basos 1 Not Estab. % Neutrophils (Absolute) 2.8 1.4-7.0 x10E3/uL Lymphs (Absolute) 1.8 0.7-3.1 x10E3/uL Monocytes(Absolute) 0.5 0.1-0.9 x10E3/uL Eos (Absolute) 0.1 0.0-0.4 x10E3/uL Baso (Absolute) 0.1 0.0-0.2 x10E3/uL Immature Granulocytes 0 Not Estab. % Immature Grans (Abs) 0.0 0.0-0.1 x10E3/uL Hepatitis C Virus Antibody w /Rflx to Quantitative Real-time PCR ([id number]) Reviewed date:06/26/2024 12:02:55 PM Interpretation: Performing Lab:[facility], [address] [place] [address], Phone - [phone], Director - [facility] Notes/Report: Clinical Information:[id number] Clinical Information:[id number] HCV Ab Non Reactive Non Reactive Interpretation: Not infected with HCV unless early or acute infection is suspected (which may be delayed in an immunocompromised individual), or other evidence exists to indicate HCV infection. CMP 14 Comprehensive Metabol ic Panel* Reviewed date:06/26/2024 12:02:55 PM Interpretation: Performing Lab:[facility], [address] [facility], Phone - [phone], [facility] Notes/Report: Clinical Information:[id number] Glucose 88 70-99 mg/dL BUN 12 6-20 mg/dL Creatinine 1.04 0.76-1.27 mg/dL eGFR 95 >59 mL/min/1.73 BUN/Creatinine Ratio 12 9-20 Sodium 140 134-144 mmol/L Potassium 4.6 3.5-5.2 mmol/L Chloride 100 96-106 mmol/L Carbon Dioxide, Total 28 20-29 mmol/L Calcium 9.5 8.7-10.2 mg/dL Protein, Total 7.0 6.0-8.5 g/dL Albumin 4.7 4.1-5.1 g/dL Globulin, Total 2.3 1.5-4.5 g/dL Bilirubin, Total 0.3 0.0-1.2 mg/dL Alkaline Phosphatase 72 44-121 IU/L AST (SGOT) 28 0-40 IU/L ALT (SGPT) 35 0-44 IU/L 12 Panel Urine Drug Screen Reviewed date:09/20/2023 01:22:09 PM Interpretation: Performing Lab: Notes/Report: THC neg RAMÍREZ neg MOP (OPI) neg AMP neg MET neg BAR neg BZO POS MDMA neg MTD neg OXY neg PCP neg BUP POS 12 Panel Urine Drug Screen Reviewed date:06/22/2024 10:38:30 AM Interpretation: Performing Lab: Notes/Report: THC NEG RAMÍREZ NEG MOP (OPI) NEG AMP NEG MET NEG BAR NEG BZO NEG MDMA NEG MTD NEG OXY NEG PCP NEG BUP POS 12 Panel Urine Drug Screen Reviewed date:05/30/2024 01:19:42 PM Interpretation: Performing Lab: Notes/Report: THC neg RAMÍREZ neg MOP (OPI) neg AMP neg MET neg BAR neg BZO neg MDMA neg MTD neg OXY neg PCP neg BUP POS Fentanyl/Norfentanyl, Confir m Reviewed date:06/26/2024 12:02:55 PM Interpretation: Performing Lab:[facility] [place], [address] [facility] [place], Phone - [phone], Director - Jose Alfredo Notes/Report: Clinical Information:[id number] Fentanyl/Norfentanyl Negative Cutoff=2.0 Test in cludes Fentanyl and Norfentanyl Please Note: Drug test results should be interpreted in the context of clinical information. Patient metabolic variables, specific drug chemistry, and specimen characteristics can affect test outcome. Technical consultation is available if a test result is inconsistent with an expected outcome. Email: [email or web address] Drug brands, if listed herein, are trademarks of their respective owners. Reason For Referral No Information Medications Medication SIG (Take, Route, Frequency, Duration) Notes Start Date End Date Status Buprenorphine HCl-Naloxone HCl 8-2 MG 1 film under the tongue and allow to dissolve Sublingual three times a day for 15 days 08/03/2024 Active Propranolol HCl ER 60 MG 1 capsule Orall y twice per day for 30 days Active QUEtiapine Fumarate 400 MG TAKE 1 TABLET BY MOUTH EVERY DAY FOR 90 DAYS for 90 Active Fluticasone Propionate 50 MCG/ACT 1-2 sprays in each nostril Nasally once daily for 30 days 07/23/2024 Active QUEtiapine Fumarate 200 MG 1 tablet Oral ly twice a day for 30 days Active Pantoprazole Sodium 20 MG 1 tablet 1/2 t o 1 hour before morning meal Orally Once a day for 30 days Active Cetirizine HCl 10 MG 1 tablet as needed Orally Once a day for 30 days 07/23/2024 Active buPROPion HCl ER (XL) 300 MG 1 tablet in the morning Orally Once a day for 30 days Active Zolpidem Tartrate 10 MG 1 tablet at bedt valentín as needed Orally Once a day for 30 days 08/01/2024 Active Docusate Sodium 100 MG 1 capsule as need ed Orally Once a day for 30 days 04/30/2024 Active Albuterol Sulfate HFA 108 (90 Base) MCG/ACT INHALE 1 PUFF BY MOUTH EVERY 4 HOURS NEEDED FOR WHEEZING for 33 Not-Taking Social History Tobacco Use: Social History Observation Description Date Details (start date - stop date) Current Smoker NA - NA Sex Assigned At : Social History Observation Description Sex Assigned At Male Tobacco Control (Standard) Question Answer Notes Tobacco use: Current every day smoker Additional Findings: Tobacco user e-ciga rette,Trivial cigarette smoker (less than 1 cig/day) Problems Problem Type SNOMED Code ICD Code Onset Dates Problem Status W/U Status Risk Notes Problem Vitamin D deficiency (18016601) Vitamin D deficiency, unspecified (E55.9) Active confirmed Problem Tobacco user (014882514) Nicotine dependence, unspecified, uncomplicated (F17.200) Active confirmed Problem Generalized anxiety disorder (80268867) Generalized anxiety disorder (F41.1) Active confirmed Problem Psychoactive substance dependence (8056712) Chemical dependency (F19.20) Active confirmed Problem Urinary hesitancy (2255791) Urinary hesitancy (R39.11) Active confirmed Problem Constipation (82303824) Constipation (K59.00) Active confirmed Problem Major depressive disorder (919906416) MDD (major depressive disorder) (F32.9) Active confirmed Problem [id number] Obesity (BMI 30.0-34.9) (E66.9) Active confirmed Problem Acid reflux (227908933) Acid reflux (K21.9) Active confirmed Problem Overweight (038093368) Overweight (BMI 25.0-29.9) (E66.3) Active confirmed Problem Sleep disturbance (51877640) Sleep disturbance, unspecified (G47.9) Active confirmed Problem Tobacco use (683608236) Tobacco use disorder (F17.200) Active confirmed Problem 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) Active confirmed Problem Obesity (673134459) Obesity, unspecified classification, unspecified obesity type, unspecified whether serious comorbidity present (E66.9) Active confirmed Problem Mental disorder caused by drug (601402871) Opioid use disorder (F11.99) Active confirmed Vital Signs Heart Rate 99 /min 07/23/2024 Temperature 98.2 degrees Fahrenheit 07/17/2024 Respiratory Rate 16 /min 07/23/2024 Blood pressure diastolic 72 mm Hg 07/23/2024 Oximetry 97 % 07/23/2024 Height 70 in 07/23/2024 Blood pressure systolic 108 mm Hg 07/23/2024 Weight 194 lbs 07/23/2024 BMI 27.83 kg/m2 07/23/2024 Encounters Encounter Location Date Provider Diagnosis [facility] [address] [place] [address] 09/07/[address] [place] [address] 10/14/[address] [place] [address] 10/17/[address] [place] [address] 11/18/2023 Mercedez Weiss [address] [place] [address] 01/12/2024 Trish Ayers [address] [place] [address] 01/20/[address] [place] [address] 01/24/2024 Trish Ayers Generalized anxiety disorder F41.1 [facility] [address] [place] [address] 04/05/2024 Mathieu Little MDD (major depressiv e disorder) F32.[address] [place] [address] 04/17/2024 Antonia Serraseven [place] [address] [place] [address] 05/14[facility] [address] [place] [address] 05/23/2024 Trish Ayers [address] [place] [address] 06/19/2024 Trish Chadwicknnan [address] [place] [address] 06/19/2024 Yaima Joel [address] [place] [address] 07/03/2024 Trish Ayers [address] [place] [address] 07/04/2024 Trish Chadwicknnan [address] [place] [address] 07/17/2024 Antonia Miner [address] [place] [address] 07/26/2024 Antonia Miner Opioid use disorder F11.99 Replaced By [facility] [address] [address] 08/06/2024 [address] [place] [address] 05/30/2024 Keven Dennis Exposure to potentia l infection Z20.9 ; Low testosterone in male E29.1 and Opioid use disorder F11.[address] [place] [address] 08/18/[address] [address] 09/20/2023 [facility] [address] [place] [address] 07/23/2024 Alejandra Short Rhinorrhea J00 ; Establishing care with new doctor, encounter for Z71.89 ; Nasal congestion R09.81 ; Low testosterone in male E29.1 ; Screening for thyroid disorder Z13.29 and Screening for hyperlipidemia Z13.[address] [address] 08/01/2024 Trish Ayers MDD (major depressiv e disorder) F32.9 ; Generalized anxiety disorder F41.1 and Sleep disturbance, unspecified G47.[address] [address] 07/02/2024 Trish Ayers MDD (major depressiv e disorder) F32.9 ; Generalized anxiety disorder F41.1 and Sleep disturbance, unspecified G47.[address] [address] 09/14/2023 Trish Ayers Generalized anxiety disorder F41.1 ; MDD (major depressive disorder) F32.9 ; Sleep disturbance, unspecified G47.9 ; Opioid use disorder F11.99 and Nicotine dependence, unspecified, uncomplicated F17.[address] [address] 05/31/2024 Trish Ayers MDD (major depressiv e disorder) F32.9 ; Generalized anxiety disorder F41.1 and Sleep disturbance, unspecified G47.[address] [address] 11/24/2023 Trish Ayers Generalized anxiety disorder F41.1 ; MDD (major depressive disorder) F32.9 ; Sleep disturbance, unspecified G47.9 ; Opioid use disorder F11.99 and Nicotine dependence, unspecified, uncomplicated F17.[address] [address] 12/15/2023 Trish Ayers Generalized anxiety disorder F41.1 ; MDD (major depressive disorder) F32.9 ; Sleep disturbance, unspecified G47.9 ; Opioid use disorder F11.99 and Nicotine dependence, unspecified, uncomplicated F17.[address] [address] 02/07/2024 Ruperto Weston MDD (major depressiv e disorder) F32.9 ; Generalized anxiety disorder F41.1 and Sleep disturbance, unspecified G47.[address] [address] 04/24/2024 Trish Ayers MDD (major depressiv e disorder) F32.9 ; Generalized anxiety disorder F41.1 and Sleep disturbance, unspecified G47.[address] [address] 04/30/2024 Antonia Szlufik Opioid use disorder F11.99 ; Nicotine dependence, unspecified, uncomplicated F17.200 and Overweight (BMI 25.0-29.9) E66.[address] [address] 05/16/2024 Antonia Szlufik Opioid use disorder F11.99 ; Overweight (BMI 25.0-29.9) E66.3 and Nicotine dependence, unspecified, uncomplicated F17.[address] [address] 05/22/2024 Antonia Szlufik Opioid use disorder F11.99 ; Overweight (BMI 25.0-29.9) E66.3 and Nicotine dependence, unspecified, uncomplicated F17.[address] [address] 05/30/2024 Keven Dennis Opioid use disorder F11.99 ; Exposure to potential infection Z20.9 and Low testosterone in male E29.1 [facility] [address] [address] 04/10/2024 Antonia Miner Opioid use disorder F11.99 ; Nutritional counseling Z71.3 and Overweight (BMI 25.0-29.9) E66.[address] [address] 06/22/2024 Mathieu Little Opioid use disorder F11.99 ; Overweight (BMI 25.0-29.9) E66.3 ; Nutritional counseling Z71.3 and Nicotine dependence, unspecified, uncomplicated F17.[address] [address] 09/20/2023 Ingris Potts Opioid use disorder F11.99 ; Obesity (BMI 30.0-34.9) E66.9 and Tobacco use disorder F17.[address] [address] 07/17/2024 Antonia Serrafiseven Opioid use disorder F11.[address] [address] 08/18/2023 Mathieu Little Opioid use disorder F11.99 ; Overweight E66.3 ; Nutritional counseling Z71.3 and Nicotine dependence, unspecified, uncomplicated F17.200 Assessments Encounter Date Diagnosis (ICD Code) Assessment Notes Treatment Notes Treatment Clinical Notes Section Notes 09/14/2023 Generalized anxiety disorder (ICD-10 - F41.1) Increasing daytime Seroquel. Encouraged f/u appt with PCP. 05/31/2024 MDD (major depressive disorder) (ICD-10 - F32.9) 05/22/2024 Overweight (BMI 25.0-29.9) (ICD-10 - E66.3) 05/22/2024 Opioid use disorder (ICD-10 - F11.99) 04/10/2024 Nutritional counseling (ICD-10 - Z71.3) 04/10/2024 Opioid use disorder (ICD-10 - F11.99) 04/05/2024 MDD (major depressive disorder) (ICD-10 - F32.9) 12/15/2023 Generalized anxiety disorder (ICD-10 - F41.1) Increasing daytime Seroquel. Encouraged f/u appt with PCP. 11/24/2023 Generalized anxiety disorder (ICD-10 - F41.1) Increasing daytime Seroquel. Encouraged f/u appt with PCP. 05/16/2024 Overweight (BMI 25.0-29.9) (ICD-10 - E66.3) 05/16/2024 Opioid use disorder (ICD-10 - F11.99) 07/23/2024 Establishing care with new doctor, encounter for (ICD-10 - Z71.89) 07/23/2024 Rhinorrhea (ICD-10 - J00) 07/17/2024 Opioid use disorder (ICD-10 - F11.99) Discussed abnormal UDS results from previous visits. Will send 2 weeks now, will send remaining 2 weeks pending lab results. Discussed MAR program expectations. 08/01/2024 MDD (major depressive disorder) (ICD-10 - F32.9) 07/02/2024 MDD (major depressive disorder) (ICD-10 - F32.9) 06/22/2024 Overweight (BMI 25.0-29.9) (ICD-10 - E66.3) 06/22/2024 Opioid use disorder (ICD-10 - F11.99) 05/30/2024 Opioid use disorder (ICD-10 - F11.99) 05/30/2024 Exposure to potential infection (ICD-10 - Z20.9) 04/30/2024 Nicotine dependence, unspecified, uncomplicated (ICD-10 - F17.200) 05/30/2024 Exposure to potential infection (ICD-10 - Z20.9) 04/30/2024 Opioid use disorder (ICD-10 - F11.99) 04/24/2024 MDD (major depressive disorder) (ICD-10 - F32.9) Client doing well overall with lessened depression after recent increase in Seroquel. Some c/o restless legs after discontinuing suboxone. Discussed adding magnesium supplement (OTC) as client does not want to be put on more medication. However, client does request prn script for trazodone for nights of difficultly r/t this and insomnia. No other medications changes. Client requests 3 month f/u due to insurance change to [employer] and costs increase. Client aware to call office for any needs. 02/07/2024 MDD (major depressive disorder) (ICD-10 - F32.9) Client doing well overall with lessened depression after recent increase in Seroquel. Some c/o restless legs after discontinuing suboxone. Discussed adding magnesium supplement (OTC) as client does not want to be put on more medication. However, client does request prn script for trazodone for nights of difficultly r/t this and insomnia. No other medications changes. Client requests 3 month f/u due to insurance change to [employer] and costs increase. Client aware to call office for any needs. 01/24/2024 Generalized anxiety disorder (ICD-10 - F41.1) 09/20/2023 Obesity (BMI 30.0-34.9) (ICD-10 - E66.9) 09/20/2023 Opioid use disorder (ICD-10 - F11.99) 07/26/2024 Opioid use disorder (ICD-10 - F11.99) 08/18/2023 Overweight (ICD-10 - E66.3) 08/18/2023 Opioid use disorder (ICD-10 - F11.99) 08/18/2023 Nutritional counseling (ICD-10 - Z71.3) 09/20/2023 Tobacco use disorder (ICD-10 - F17.200) 07/02/2024 Generalized anxiety disorder (ICD-10 - F41.1) 02/07/2024 Generalized anxiety disorder (ICD-10 - F41.1) Client doing well overall with lessened depression after recent increase in Seroquel. Some c/o restless legs after discontinuing suboxone. Discussed adding magnesium supplement (OTC) as client does not want to be put on more medication. However, client does request prn script for trazodone for nights of difficultly r/t this and insomnia. No other medications changes. Client requests 3 month f/u due to insurance change to [employer] and costs increase. Client aware to call office for any needs. 04/24/2024 Generalized anxiety disorder (ICD-10 - F41.1) Client doing well overall with lessened depression after recent increase in Seroquel. Some c/o restless legs after discontinuing suboxone. Discussed adding magnesium supplement (OTC) as client does not want to be put on more medication. However, client does request prn script for trazodone for nights of difficultly r/t this and insomnia. No other medications changes. Client requests 3 month f/u due to insurance change to [employer] and costs increase. Client aware to call office for any needs. 05/30/2024 Low testosterone in male (ICD-10 - E29.1) 04/30/2024 Overweight (BMI 25.0-29.9) (ICD-10 - E66.3) 05/30/2024 Low testosterone in male (ICD-10 - E29.1) 06/22/2024 Nutritional counseling (ICD-10 - Z71.3) 08/01/2024 Generalized anxiety disorder (ICD-10 - F41.1) 05/22/2024 Nicotine dependence, unspecified, uncomplicated (ICD-10 - F17.200) 07/23/2024 Nasal congestion (ICD-10 - R09.81) 04/10/2024 Overweight (BMI 25.0-29.9) (ICD-10 - E66.3) 11/24/2023 MDD (major depressive disorder) (ICD-10 - F32.9) 12/15/2023 MDD (major depressive disorder) (ICD-10 - F32.9) 05/16/2024 Nicotine dependence, unspecified, uncomplicated (ICD-10 - F17.200) 05/31/2024 Generalized anxiety disorder (ICD-10 - F41.1) 09/14/2023 MDD (major depressive disorder) (ICD-10 - F32.9) 09/14/2023 Sleep disturbance, unspecified (ICD-10 - G47.9) Encouraged healthy sleep routine. 05/31/2024 Sleep disturbance, unspecified (ICD-10 - G47.9) Increasing- discussed r/b/se. 12/15/2023 Sleep disturbance, unspecified (ICD-10 - G47.9) Encouraged healthy sleep routine. 11/24/2023 Sleep disturbance, unspecified (ICD-10 - G47.9) Encouraged healthy sleep routine. 07/23/2024 Low testosterone in male (ICD-10 - E29.1) 07/02/2024 Sleep disturbance, unspecified (ICD-10 - G47.9) Has tried Seroquel, trazodone. Hx of doing well with Ambien. Discussed not taking at same time as Suboxone. Discussed resp depression. Discussed r/b/se and controlled susbtance. Starting CR due to trouble with staying asleep. Client v/u. PDMP checked without concerns. 06/22/2024 Nicotine dependence, unspecified, uncomplicated (ICD-10 - F17.200) 08/01/2024 Sleep disturbance, unspecified (ICD-10 - G47.9) Has tried Seroquel, trazodone. Hx of doing well with Ambien, tried 6.25 mg CR with minimal response, changing to 10mg IR. Discussed not taking at same time as Suboxone. Discussed resp depression. Discussed r/b/se and controlled susbtance. Recent UDS with MAR reviewed, no conserns at this time. PDMP checked without concerns. 05/30/2024 Opioid use disorder (ICD-10 - F11.99) 04/24/2024 Sleep disturbance, unspecified (ICD-10 - G47.9) Increasing- discussed r/b/se. Client doing well overall with lessened depression after recent increase in Seroquel. Some c/o restless legs after discontinuing suboxone. Discussed adding magnesium supplement (OTC) as client does not want to be put on more medication. However, client does request prn script for trazodone for nights of difficultly r/t this and insomnia. No other medications changes. Client requests 3 month f/u due to insurance change to [employer] and costs increase. Client aware to call office for any needs. 02/07/2024 Sleep disturbance, unspecified (ICD-10 - G47.9) Client doing well overall with lessened depression after recent increase in Seroquel. Some c/o restless legs after discontinuing suboxone. Discussed adding magnesium supplement (OTC) as client does not want to be put on more medication. However, client does request prn script for trazodone for nights of difficultly r/t this and insomnia. No other medications changes. Client requests 3 month f/u due to insurance change to [employer] and costs increase. Client aware to call office for any needs. 08/18/2023 Nicotine dependence, unspecified, uncomplicated (ICD-10 - F17.200) 07/23/2024 Screening for thyroid disorder (ICD-10 - Z13.29) 11/24/2023 Opioid use disorder (ICD-10 - F11.99) continue with MAT 12/15/2023 Opioid use disorder (ICD-10 - F11.99) continue with MAT 09/14/2023 Opioid use disorder (ICD-10 - F11.99) continue with MAT 09/14/2023 Nicotine dependence, unspecified, uncomplicated (ICD-10 - F17.200) Discouraged use. 11/24/2023 Nicotine dependence, unspecified, uncomplicated (ICD-10 - F17.200) Discouraged use. 12/15/2023 Nicotine dependence, unspecified, uncomplicated (ICD-10 - F17.200) Discouraged use. 07/23/2024 Screening for hyperlipidemia (ICD-10 - Z13.220) 08/18/2023 Other Potential side effects of buprenorphine discussed, as well as taking buprenorphine as prescribed. Dangers of using other controlled substances (prescribed or illegal/including benzodiazepines) with buprenorphine discussed. Patient understands taking other narcotics with buprenorphine could lead to respiratory distress and even . Patient understands that ALL treating providers/physicians should be informed of buprenorphine use as part of a Medication Assisted Treatment program 08/18/2023 Other Provided case management services to address social determinants of health needs and reduce barriers to health care services. 09/14/2023 Other Reasons, potential benefits, potential risks, interactions [...] up. This session was completed telephonically with client/parental/guar joseph consent: Unable to determine movement status, assess appearance, affect, AIMS, or vital signs. 09/20/2023 Other Client agrees to take medication as prescribed. Discussed medication side effects, adverse effects, risks, benefits, as well as interactions. Encouraged non-use of opioids. Has naloxone. Recommended participation in recovery groups to help aide in sobriety. May contact office with questions or concerns. 09/20/2023 Other Provided case management services to address social determinants of health needs and reduce barriers to health care services. 11/24/2023 Other Reasons, potential benefits, potential risks, interactions [...] May also contact the 24-hour crisis hotline ([facility]), refer to the closest emergency room [...] up. This session was completed telephonically with client/parental/guar joseph consent: Unable to determine movement status, assess appearance, affect, AIMS, or vital signs. 12/15/2023 Other Courtesy fill- client to f/u with PCP at his earliest convenience. Stressed the importance of this and client v/u. Reasons, potential benefits, potential risks, interactions and [...] May also contact the 24-hour crisis hotline ([facility]), refer to the closest emergency room [...] up. This session was completed telephonically with client/parental/guar joseph consent: Unable to determine movement status, assess appearance, affect, AIMS, or vital signs. 02/07/2024 Other Discussed sleep hygiene and caffeine intake with encouragement to limit electronic devices an hour before bed and to limit caffeine after 3:00pm. Exercise benefits for mood and health discussed. Psychoeducation regarding psychiatric illness provided. Client was educated about risks and benefits of medication, alternatives to medication, off label uses of medication, suicidal ideation with SSRIs, self-administration and compliance with medication along with how to safely store medication. Verbal informed consent obtained. Client agrees to return sooner if symptoms worsen or if suicidal or homicidal ideations occur. Client has the phone number to the 24-hour crisis line at [facility]. Questions addressed. Client verbalized understanding of all information and is agreeable to treatment plan. Client doing well overall with lessened depression after recent increase in Seroquel. Some c/o restless legs after discontinuing suboxone. Discussed adding magnesium supplement (OTC) as client does not want to be put on more medication. However, client does request prn script for trazodone for nights of difficultly r/t this and insomnia. No other medications changes. Client requests 3 month f/u due to insurance change to [employer] and costs increase. Client aware to call office for any needs. 04/10/2024 Other Client agrees to take medication as prescribed. Discussed medication side effects, adverse effects, risks, benefits, as well as interactions. Encouraged non-use of opioids and other illicit substances. Has naloxone. Understand that discontinuing buprenorphine increases the risk of overdose upon return to illicit opioid use. Know that that use of alcohol or benzodiazepines with buprenorphine increases the risk of overdose and . Education provided about safe storage of medications. Encourage participation in recovery groups/counseling services. Patient understands that all treating providers should be informed of buprenorphine use as part of a Medication Assisted Recovery program. Contact office with questions or concerns. Will follow-up with patient over telephone 04/24/2024 Other Reasons, potential benefits, potential risks, interactions [...] up. This session was completed telephonically with client/parental/guar joseph consent: Unable to determine movement status, assess appearance, affect, AIMS, or vital signs. Client doing well overall with lessened depression after recent increase in Seroquel. Some c/o restless legs after discontinuing suboxone. Discussed adding magnesium supplement (OTC) as client does not want to be put on more medication. However, client does request prn script for trazodone for nights of difficultly r/t this and insomnia. No other medications changes. Client requests 3 month f/u due to insurance change to [employer] and costs increase. Client aware to call office for any needs. 04/30/2024 Other Client agrees to take medication as prescribed. Discussed medication side effects, adverse effects, risks, benefits, as well as interactions. Encouraged non-use of opioids and other illicit substances. Has naloxone. Understand that discontinuing buprenorphine increases the risk of overdose upon return to illicit opioid use. Use of alcohol or benzodiazepines with buprenorphine increases the risk of overdose and . Education provided about safe storage of medications. Encourage participation in recovery groups/counseling services. Patient understands that all treating providers should be informed of buprenorphine use as part of a Medication Assisted Recovery program. Contact office with questions or concerns. 05/16/2024 Other Client agrees to take medication as prescribed. Discussed medication side effects, adverse effects, risks, benefits, as well as interactions. Encouraged non-use of opioids and other illicit substances. Has naloxone. Discontinuing buprenorphine increases the risk of overdose upon return to illicit opioid use. Use of alcohol or benzodiazepines with buprenorphine increases the risk of overdose and . Education provided about safe storage of medications. Encouraged participation in recovery groups/counseling services. Contact office with questions or concerns. 05/22/2024 Other Client agrees to take medication as prescribed. Discussed medication side effects, adverse effects, risks, benefits, as well as interactions. Encouraged non-use of opioids and other illicit substances. Has naloxone. Discontinuing buprenorphine increases the risk of overdose upon return to illicit opioid use. Use of alcohol or benzodiazepines with buprenorphine increases the risk of overdose and . Education provided about safe storage of medications. Encouraged participation in recovery groups/counseling services. Contact office with questions or concerns. 05/31/2024 Other Reasons, potential benefits, potential risks, interactions [...] up. This session was completed telephonically with client/parental/guar joseph consent: Unable to determine movement status, assess appearance, affect, AIMS, or vital signs. 06/22/2024 Other Potential side effects of buprenorphine discussed, as well as taking buprenorphine as prescribed. Dangers of using other controlled substances (prescribed or illegal/including benzodiazepines) with buprenorphine discussed. Patient understands taking other narcotics with buprenorphine could lead to respiratory distress and even . Patient understands that ALL treating providers/physicians should be informed of buprenorphine use as part of a Medication Assisted Treatment program 07/02/2024 Other Reasons, potential benefits, potential risks, interactions [...] May also contact the 24-hour crisis hotline ([facility]), refer to the closest emergency room [...] up. This session was completed telephonically with client/parental/guar joseph consent: Unable to determine movement status, assess appearance, affect, AIMS, or vital signs. 07/17/2024 Other Patient agrees to take medication as prescribed. Discussed medication side effects, adverse effects, risks, benefits, as well as interactions. Encouraged non-use of opioids and other illicit substances. Has naloxone. Discontinuing buprenorphine increases the risk of overdose upon return to illicit opioid use. Use of alcohol or benzodiazepines with buprenorphine increases the risk of overdose and . Education provided about safe storage of medications. Encouraged participation in recovery groups/counseling services. Contact office with questions or concerns. 08/01/2024 Other Reasons, potential benefits, potential [...] up. This session was completed telephonically with client/parental/guar joseph consent: Unable to determine movement status, assess appearance, affect, AIMS, or vital signs. 07/03/2024 No physic al complaints/conc erncs voiced by clementina. Plan Of Treatment Pending Test Test Name Order Date Pulmonary Function Test 03/24/2023 Future Test Test Name Order Date Testosterone, Serum 07/23/2024 Prolactin 07/23/2024 FSH and LH 07/23/2024 Vitamin D, 25-Hydroxy* 07/23/2024 Lipid Panel* 07/23/2024 TSH Rfx on Abnormal to Free T4 4 Insurance Providers Payer Name Payer Address Payer Phone Subscriber Number Group Number Insured Name Patient Relationship to Insured Coverage Start Date Coverage End Date [employer] [address] [place] [phone] [id number] Ab Sanchez Self - patient is the insured 4 4 [address] [place] [phone] [id number] Ab Sanchez Self - patient is the insured 3 3 [employer] [address] [place] [phone] [id number] Ab Sanchez Self - patient is the insured 3 3 [facility] [address] [facility] [address] [place] [address] [id number] Ab Sanchez Self - patient is the insured 3 Medical (General) History Medical History History ICD Code OUD Depression Surgical History Surgery Date(Month/Year) Hospitalization History Reason Date(Month/Year) bleeding ulcer, Fall, broken ankle 4 Multiple psychiatric holds [facility] 2022
[2024-08-18 11:06] VITALS: BP 123/69; PULSE 92; RESP 18; TEMP 36.4; O2SAT 94
--- NOTE | 2024-08-18 11:31 | ED.URI ---
HPI - URI/Sore Throat General Chief Complaint: Dizziness Stated Complaint: lightheaded and dizziness Time Seen by Provider: 08/18/24 11:31 Source: patient Mode of arrival: ambulatory Limitations: no limitations History of Present Illness HPI Narrative: 38-year-old male presents with complaint of intermittent dizziness, feeling lightheaded for the past 6 months. Has not seen his primary care physician for this problem. Denies headaches. Reports yesterday while at work he had a episode of dizziness That lasted only a few minutes while at work. Caused him to have to go home from work early. Feeling lightheaded this morning and decided he cannot go to work today either. Is requesting a work note for yesterday, today and tomorrow. States he will call his primary care physician Tuesday and schedule a follow-up appointment. At this time he is feeling well, no dizziness. denies URI symptoms. No nausea vomiting diarrhea. All systems reviewed and negative except as noted above. Related Data Allergies Allergy/AdvReac Type Severity Reaction Status Date / Time Penicillins Allergy Severe Other Verified 08/18/24 11:21 Review of Systems Review of Systems: CONSTITUTIONAL: Denies fever, chills, or sweats. EYES: Denies visual changes, redness, or discharge. ENT: Denies rhinorrhea, congestion, sore throat, or otalgia. CARDIOVASCULAR: Denies chest pain, palpitations, or edema. RESPIRATORY: Denies cough or dyspnea. GASTROINTESTINAL: Denies abdominal pain, nausea, vomiting, or diarrhea. GENITOURINARY: Denies dysuria or hematuria. SKIN: Denies rash or itching. MUSCULOSKELETAL: Denies back pain, joint pain, or myalgia. NEUROLOGIC: Denies headache, numbness, or weakness. Reports intermittent dizziness. PSYCHIATRIC: Denies anxiety or depression. All other systems reviewed are negative, except as documented in HPI. PMFSH Comments At time of signature, agree with nursing past medical, surgical, social and family history. There is no relevant family history pertinent to the presenting complaint. Exam Narrative: GENERAL: This is a well-nourished, well-developed patient, in no apparent distress. HEAD: normocephalic, atraumatic. EYES: PERRL. Sclera clear/white. Vision is grossly intact. Extraocular motions intact EARS: External ears normal, auditory canals clear and without drainage, TMs normal without perforation. Hearing grossly intact. NOSE: External nose normal with no obvious nasal discharge, nares without redness, no rhinorrhea. THROAT: Mucous membranes moist, posterior pharynx clear. NECK: Neck supple, non-tender without lymphadenopathy, masses or thyromegaly. CARDIOVASCULAR: Regular rate and rhythm without murmurs, gallops, or rubs. RESPIRATORY: Clear to auscultation. Breath sounds equal bilaterally. No wheezes, rales, or rhonchi. SKIN: warm, Dry, intact with no suspicious lesions or rash, good texture and turgor. NEURO: awake, alert, and oriented to person, place and time. There were no obvious focal neurologic abnormalities. EXTREMITIES: No joint tenderness, effusion, or edema noted. Course Course Level of Care: Express Care Visit Vital Signs Vital signs: Vital Signs Temperature 36.4 C 08/18/24 11:06 Pulse Rate 92 08/18/24 11:06 Respiratory Rate 18 08/18/24 11:06 Blood Pressure 123/69 08/18/24 11:06 Pulse Oximetry 94 08/18/24 11:06 Oxygen Delivery Room Air 08/18/24 11:06 Temperature 36.4 C 08/18/24 11:06 Pulse Rate 92 08/18/24 11:06 Respiratory Rate 18 08/18/24 11:06 Blood Pressure 123/69 08/18/24 11:06 Pulse Oximetry 94 08/18/24 11:06 Oxygen Delivery Room Air 08/18/24 11:06 Reviewed MDM - URI/Sore Throat MDM Narrative Medical decision making narrative: patient well-appearing, no dizziness at this time. Vital signs stable. No neuro deficits. Patient here for work note. Plans to follow-up with primary care physician regarding his symptoms. Patient is aware of diagnosis, understands and agrees to treatment plan. Anticipatory guidance given. Patient agrees to follow-up as directed and is aware of reasons to seek care at the emergency department. Portions of this record may have been created with voice recognition software Discharge Plan Discharge Clinical Impression: Dizziness, Encounter to obtain excuse from work Patient Disposition: Home, Self-Care Condition: Stable Instructions: Dizziness (ED) Additional Instructions: follow-up with your primary care physician for further evaluation of your symptoms. For any worsening of your symptoms go to the ER. Patient Language: Thai Prescriptions: No Action famotidine [Pepcid] 20 mg tablet 20 mg PO BID Qty: 60 0RF Follow-up/Referrals: UNKNOWN,DOCTOR [Primary Care Provider] - ( call and schedule follow-up appointment with your primary care physician) Stand Alone Forms: Work/School Release IP
== END 2024-08-18 11:50 | disposition home or self-care (01) ==
PROVIDERS: Emergency Provider Nurse Practitioner Family
DX: R42 Dizziness and giddiness (principal)
CPT/HCPCS: 99213; G0463